=== PATIENT | male | born 2000 | race African-American/Black ===

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

== ENCOUNTER 2022-12-01 06:58 | Emergency (ER) | payer OTHER, SELFPAY ==
[2022-12-01] MEDS ORDERED: Ketorolac Tromethamine 30 MG/ML VIAL ONE (07:20)
== END 2022-12-01 08:27 | disposition home or self-care (01) ==
LOC: ERS 06:58
DX: S46.912A Strain of unspecified muscle, fascia and tendon at shoulder and upper arm level, left arm, initial encounter (principal); F17.290 Nicotine dependence, other tobacco product, uncomplicated
CPT/HCPCS: 96372; J1885

== ENCOUNTER 2023-11-18 18:17 | Emergency (ER) | payer OTHER, SELFPAY | END 2023-11-18 19:13 | disposition home or self-care (01) | LOC: ERS 18:17 | DX: M25.531 Pain in right wrist (principal); W17.89XA Other fall from one level to another, initial encounter | CPT/HCPCS: 29125 ==

== ENCOUNTER 2023-11-25 13:11 | Emergency (ER) | payer SELFPAY | END 2023-11-25 14:30 | disposition home or self-care (01) | LOC: ERS 13:11 | DX: M25.531 Pain in right wrist (principal) ==